=== PATIENT | male | born 1935 | race Caucasian/White ===

== ENCOUNTER 2017-01-11 05:23 | Inpatient (IN) | payer MEDICARE ==
[2017-01-11 05:54] LABS: #Lymphocytes 1.8 thou/uL (1.20-3.40); #Monocytes 0.6 thou/uL (0.11-0.59); #Neutrophils 14.8 thou/uL (1.40-6.50); %Basophils 0.1 % (0.0-1.0); %Eosinophils 0.2 % (0.0-10.0); %Lymphocytes 10.2 % (21.0-51.0); %Monocytes 3.5 % (0.0-10.0); Hematocrit 25.4 % (42.0-52.0); Mean Platelet Volume 6.3 fL (7.4-10.4); Red Blood Cell (RBC) Count 2.76 mill/uL (4.70-6.10); White Blood Cell (WBC) Count 17.2 thou/uL (4.8-10.8)
[2017-01-11 06:19] LABS: ALT (SGPT) 13 U/L (8-55); AST (SGOT) 15 U/L (5-34); Alkaline Phosphatase 51 U/L (40-150); Anion Gap 17 mmol/L (10-20); BUN (Urea Nitrogen) 93 mg/dL (8.4-25.7); Bilirubin, Total 0.4 mg/dL (0.2-1.2); Calc. Creatinine Clearance 0 mL/min (70-130); Carbon Dioxide 21 mmol/L (23-31); Chloride 102 mmol/L (98-107); Estimated GFR-MDRD 49; Globulin 2.7 g/dL (2.4-3.5); Protein, Total 6.5 g/dL (5.8-8.1)
[2017-01-11 06:23] LABS: Troponin I Less than 0.010 ng/mL (< 0.028)
[2017-01-11 06:38] LABS: Lactic Acid - Sepsis 3.6 mmol/L (0.5-2.2)
[2017-01-11] MEDS ORDERED: Sodium Chloride 0.9% 100 ML ONE (06:44)
[2017-01-11] MEDS ORDERED: cefTRIAXone\\ROCEPHIN 1 GM VIAL ONE (06:44)
--- NOTE | 2017-01-11 07:50 | RAD ---
SINGLE VIEW OF CHEST: Date: 01/11/17 COMPARISON: 06/12/16. HISTORY: Chest pain starting yesterday. FINDINGS: Single view of the chest shows normal sized cardiomediastinal silhouette with atherosclerotic calcif ications in the aorta. There is no evidence of consolidation, mass, or pleural effusion. The patient is status post right shoulder arthroplasty. IMPRESSION: 1. No evidence of acute cardiopulmonary disease. 2. Atherosclerotic disease. POS: [facility]
[2017-01-11] MEDS ORDERED: Azithromycin 500 MG VIAL ONE (08:05)
--- NOTE | 2017-01-11 08:24 | HP ---
PRIMARY CARE PHYSICIAN: Rajani Lucas, Family Nurse Practitioner. REASON FOR ADMISSION: Chest pain and leukocytosis, rule out sepsis. HISTORY OF PRESENT ILLNESS: An 81-year-old male who has Alzheimer's dementia, diabetes type 2, hypertension, hypothyroidism who was complaining of chest pain for the last couple of days. His chest pain description is very difficult to get from him because he was changing position of location of the pain. Yesterday when he was complaining of pain and that is why patient's daughter-in- law told him that they cannot go to [employer] game for her granddaughter and then the patient reported to them that he was fine. He does not have any chest pain. Subsequently, they went to [employer] game and as per patient's daughter- in-law, he was able to watch entire game without any complaints. He was able to walk, he was able to climb stairs over there and after the volleyball game they went to a restaurant and ate lunch. Subsequently they went home and again at home the patient was complaining of chest pain which was predominantly in the epigastric region and sometimes in the left side, sometimes right side and that is why the patient's kbtztoso-bi-ovu decided to bring him to the emergency room for evaluation. About a couple of weeks ago he had urinary tract infection and per patient's [id number]-[id number], the patient was given antibiotic prescription for amoxicillin for 4 days. The patient was also having cough productive of white sputum and the patient's primary care physician prescribed Tessalon. He did not have any fever or chills. He did not have any nausea, vomiting, diarrhea, or UTI symptoms. He did not have any fever at home. He denies any difficulty breathing, hemoptysis, lower extremity swelling. The patient had only poor appetite for the last couple of days. PAST MEDICAL HISTORY: Diabetes type 2, hypertension, hypothyroidism, Alzheimer dementia. History of stroke in the past and he is blind in his left eye. PAST PSYCHIATRIC HISTORY: Anxiety and depression. PAST SURGICAL HISTORY: Right shoulder surgery with shoulder replacement. SOCIAL HISTORY: Patient lives at home with the family. Patient does not have any tobacco, alcohol or illicit drug abuse. The patient's bqexusvm-sy-bue is the surrogate decision maker. The patient is and lives with his son and pevrobeh-wc-ljn. FAMILY HISTORY: No strong family history of premature coronary artery disease, stroke or cancer. ALLERGIES: IODINE CONTRAST. CURRENT HOME MEDICATIONS: Metformin 1000 mg p.o. b.i.d., Namenda 5 mg p.o. b.i.d., Aricept 10 mg p.o. at bedtime, aspirin 81 mg p.o. daily. Buspirone 10 mg p.o. daily, Synthroid 112 mcg p.o. daily, B complex 1 tablet p.o. daily, lisinopril 10 mg p.o. daily, Mobic 15 mg half tablet at bedtime, ferrous sulfate 325 mg p.o. daily, Zoloft 100 mg p.o. daily, Xanax 0.25 mg p.o. at bedtime., Tessalon 200 mg t.i.d. as needed. REVIEW OF SYSTEMS: The following complete review of systems was negative, unless otherwise mentioned in the HPI or below: Constitutional: Weight loss or gain, ability to conduct usual activities. Skin: Rash, itching. Eyes: Double vision, pain. ENT/Mouth: Nose bleeding, neck stiffness, pain, tenderness. Cardiovascular: Palpitations, dyspnea on exertion, orthopnea. Respiratory: Shortness of breath, wheezing, cough, hemoptysis, fever or night sweats. Gastrointestinal: Poor appetite, abdominal pain, heartburn, nausea, vomiting, constipation, or diarrhea. Genitourinary: Urgency, frequency, dysuria, nocturia. Musculoskeletal: Pain, swelling. Neurologic/Psychiatric: Anxiety, depression. Allergy/Immunologic: Skin rash, bleeding tendency. Please see my HPI, pertinent positives and negatives. All other review of systems reviewed and negative except as mentioned in the HPI. Review of systems is a little bit unreliable because of his dementia. PHYSICAL EXAMINATION: VITAL SIGNS: On arrival, blood pressure 115/62, pulse 93, respiratory rate 16, temperature 97.8, saturation 98% on room air, weight 83.01 kilograms. GENERAL: The patient is currently alert, awake, baseline confused. HEENT: Head; normocephalic, atraumatic. Eyes: Pupils round, reactive to light. Extraocular muscles intact. ENT: Oropharynx within normal limits. Moist mucous membranes. No oral lesions. No pharyngeal erythema, no exudate. NECK: Supple. Range of motion is normal. No meningeal signs of irritation. LUNGS: Coarse breath sounds noted, but no obvious rales or rhonchi. No expiratory wheezing, no accessory muscles of respiration use. CARDIAC: S1, S2 regular, slight tachycardia, no murmur, no gallop, no rub. ABDOMEN: Soft. No epigastric tenderness, no Simmons sign, no peritoneal signs, no distention. Bowel sounds present. No suprapubic discomfort noted. BACK: No CVA tenderness. EXTREMITIES: Upper extremities; passive movement of all joints are normal. Lower extremities: No edema. Good peripheral pulsation. SKIN: No skin rash. HEMATOLOGICAL: No lymphadenopathy. PSYCHIATRIC: Normal affect. NEUROLOGIC: Nonfocal examination. Patient is moving all 4 limbs. SIGNIFICANT LABS: EKG based on my review reveals normal sinus rhythm, right bundle branch block pattern. Chest x-ray based on my review, no acute cardiopulmonary process. CBC: WBC 17.2, hemoglobin 8.3, platelet 276. BMP: Sodium 135, potassium 4.8, chloride 102, carbon dioxide 21, anion gap 17, BUN 93, creatinine 1.38, glucose 209, calcium 10.0. LFT: AST 15, ALT 13, alkaline phosphatase 51, albumin 3.8. CK-MB 3.4, troponin I less than 0.010, BNP 25.6. Lactic acid 3.6, D-dimer 1.25. EMERGENCY ROOM COURSE: The patient is given Rocephin 1 gram and azithromycin 500 mg, aspirin 324 mg and IV fluids 500 mL. ASSESSMENT AND PLAN: 1. Chest pain. The patient's chest pain description is very vague. He is pointing different locations at different times, location of the pain is in the epigastric left, right side. He is on room air. He has elevated D-dimer, though probability of pulmonary embolism is extremely unlikely, but will do VQ scan given his contrast allergy. As he has D-dimer elevated, we will also do ultrasound of bilateral lower extremities to rule out any DVT. I am suspecting his chest pain is related with his bronchitis and given his cough for almost 2 weeks and he has leukocytosis. We will continue with Rocephin 1 gram q.24 hours and azithromycin 500 mg IV daily while in hospital. We will control his pain and will do serial cardiac enzymes to rule out acute coronary syndrome. While in the hospital we will monitor on telemetry floor. 2. Acute kidney failure. The patient will be given IV fluid normal saline at 100 mL per hour and we will repeat BMP tomorrow. We will hold on that lisinopril therapy as well as NSAIDs and avoid nephrotoxins. 3. Leukocytosis, rule out sepsis, most likely related with acute bronchitis, but we will check urinalysis, urine culture. Blood culture already obtained. The patient is already on broad spectrum antibiotic therapy. We will repeat CBC tomorrow. 4. Lactic acidosis, could be part of sepsis, could be part of metformin. We will repeat lactic acid after IV fluid hydration. 5. Diabetes type 2. Given acute kidney failure, we will hold on metformin therapy. We will only continue with insulin as per sliding scale per protocol. We will restart metformin tomorrow. 6. Alzheimer dementia. While in hospital, we will continue his home medications, Namenda 5 mg b.i.d., Aricept 10 mg p.o. at bedtime. 7. Anxiety and depression. We will continue Xanax 0.25 mg at bedtime and Zoloft 100 mg p.o. daily. 8. Hypothyroidism. We will continue Synthroid 112 mcg p.o. daily. 9. Chronic normocytic anemia. We will continue ferrous sulfate 325 mg p.o. daily and multivitamin 1 tablet daily while in hospital. 10. Deep venous thrombosis prophylaxis, heparin 5000 units subcu twice daily. 11. Gastrointestinal prophylaxis, Protonix 40 mg p.o. daily. CODE STATUS: I spoke with the patient's [id number] who is medical power of banking attorney and confirmed DNR status. Disposition plan based on clinical course. We are trying to rule out sepsis. We are going to treat for acute bronchitis and we will hydrate with IV fluids for acute kidney failure. Most likely the patient will stay more than 2 midnights. MTDD
[2017-01-11 09:10] LABS: Troponin I Less than 0.010 ng/mL (< 0.028)
[2017-01-11] MEDS ORDERED: Diabetic Tussin 200 MG/10 ML UDCUP PO PRN (09:26)
[2017-01-11] MEDS ORDERED: Benzonatate 100 MG CAP PO PRN (09:26)
[2017-01-11] MEDS ORDERED: Saccharomyces boulardii 250 MG CAP PO SCH ×2 (09:26→10:00)
[2017-01-11] MEDS ORDERED: Eucerin (Mineral Oil/Petrolatum,White) 30 gm Jar TOP PRN (09:26)
[2017-01-11] MEDS ORDERED: busPIRone HCl 10 MG TAB PO SCH ×2 (09:26→09:45)
[2017-01-11] MEDS ORDERED: Ondansetron ODT 4 MG TAB PO PRN (09:26)
[2017-01-11] MEDS ORDERED: Senokot 8.6 MG TAB PO PRN (09:26)
[2017-01-11] MEDS ORDERED: HYDROcodone/Acetaminophen 5/325 mg Tablet PO PRN (09:26)
[2017-01-11] MEDS ORDERED: Zolpidem Tartrate 5 MG TAB PO PRN (09:26)
[2017-01-11] MEDS ORDERED: Dextrose 5% in Water 1,000 ML IV PRN (09:26)
[2017-01-11] MEDS ORDERED: Artificial Tears 18 DROP/0.9 ML EA EYE PRN (09:26)
[2017-01-11] MEDS ORDERED: Ferrous Sulfate 325 MG TAB PO SCH ×2 (09:26→09:45)
[2017-01-11] MEDS ORDERED: Heparin 5,000 UNITS/ML VIAL SC SCH ×2 (09:26→09:45)
[2017-01-11] MEDS ORDERED: Loratadine 10 MG TAB PO PRN (09:26)
[2017-01-11] MEDS ORDERED: Ondansetron HCl/PF 4 MG/2 ML Vial IVP PRN (09:26)
[2017-01-11] MEDS ORDERED: Loperamide HCl 2 MG CAP PO PRN (09:26)
[2017-01-11] MEDS ORDERED: Mag-Al 1200 mg/1200 mg/30 ML UDCUP PO PRN (09:26)
[2017-01-11] MEDS ORDERED: Dextrose 50% Abboject 50 ML SYRINGE SLOW IVP PRN (09:26)
[2017-01-11] MEDS ORDERED: hydrALAZINE 20 MG/ML VIAL SLOW IVP PRN (09:26)
[2017-01-11] MEDS ORDERED: Multivitamin W/ Minerals 1 TAB PO SCH ×2 (09:26→09:45)
[2017-01-11] MEDS ORDERED: Sodium Chloride 0.65% Nasal 44 ML BOT EA NARE PRN (09:26)
[2017-01-11] MEDS ORDERED: HumaLOG 300 UNITS/3 ML VIAL SC PRN ×2 (09:26)
[2017-01-11] MEDS ORDERED: Milk Of Magnesia 30 ML UDCUP PO PRN (09:26)
[2017-01-11] MEDS: Sodium Chloride 0.9% 1,000 ML IV SCH ×2 (10:24→21:56)
[2017-01-11] MEDS: Azithromycin 500 MG in Sodium Chloride 0.9% 250 ML 250 ML IVPB SCH (11:15)
[2017-01-11] MEDS: cefTRIAXone\\ROCEPHIN 1 GM in Sodium Chloride 0.9% 100 ML IVPB SCH (11:15)
[2017-01-11 12:41] LABS: Troponin I 0.019 ng/mL (< 0.028)
[2017-01-11 13:46] LABS: Bilirubin Negative (Negative); Blood, Urine Negative (Negative); Glucose, Urine (Dipstick) Negative (Negative); Ketone, Urine Negative (Negative); Nitrite Negative (Negative); Protein, Urine (Dipstick) Negative (Neg-Trace); Urobilinogen 0.2 mg/dL (0.2-1.0)
[2017-01-11 13:51] LABS: Bacteria/HPF None Seen HPF (None Seen); Hyaline Casts/LPF 0-3 HYALINE CAST LPF (0-3 Hyaline); RBC/HPF 0-3 HPF (0-3); Squamous Epithelial 0-3 HPF (0-3); WBC/HPF None Seen HPF (0-3)
--- NOTE | 2017-01-11 14:25 | NM ---
NUCLEAR MEDICINE VQ SCAN: Date: 01/11/17 COMPARISON: Chest x-ray dated 01/11/17. HISTORY: Chest pain and elevated D-Dimer. TECHNIQUE: A VQ scan was performed in the standard fashion. Ventilation images were performed using 16.4 mCi Xe non-133. Perfusion images were performed using 6.1 mCi of technetium-99m MAA. FINDINGS: Ventilation: Breath-hold, equilibrium, and washout phases are normal. No ventilator defects are seen. Mild air tr apping is seen. Perfusion: No small, medium, or large perfusion defects are seen. IMPRESSION: 1. Very low probability for pulmonary thromboembolism. 2. Air trapping may be secondary to emphysema. POS: [facility]
--- NOTE | 2017-01-11 16:38 | ULT ---
BILATERAL LOWER EXTREMITY VENOUS ULTRASOUND: Date: 01/11/17 COMPARISON: None. HISTORY: Elevated D-Dimer and bilateral lower extremity edema. TECHNIQUE: Multiplanar Lambert scale and color Doppler images were obtained in a bilateral lower extremity venous ultrasound. Spectral analysis of the Doppler waveforms were performed. FINDINGS: Bilateral common femoral veins, profunda femoral veins, superficial femoral veins, and popliteal vei ns are normal in appearance without visible thrombus. These vessels demonstrate normal compression, flow, and augmentation. The posterior tibial veins and greater saphenous veins are also patent. IMPRESSION: No evidence of deep venous thrombosis. POS: [facility]
[2017-01-11] MEDS ORDERED: Ziprasidone 20 MG VIAL IM SCH (17:30)
[2017-01-11] MEDS ORDERED: Sterile Water 10 ML VIAL FS SCH (17:30)
[2017-01-11] MEDS: ALPRAZolam 0.25 MG TAB PO PRN (21:53)
[2017-01-11] MEDS: Donepezil HCl 10 MG TAB PO SCH (21:54)
[2017-01-11] MEDS: Heparin 5,000 UNITS/ML VIAL SC SCH (22:07)
[2017-01-12] MEDS: Sodium Chloride 0.9% 1,000 ML IV SCH ×2 (05:51→16:34)
[2017-01-12 06:35] LABS: #Eosinphils 0.1 thou/uL (0.0-0.7); #Lymphocytes 1.7 thou/uL (1.20-3.40); #Monocytes 0.5 thou/uL (0.11-0.59); #Neutrophils 4.1 thou/uL (1.40-6.50); %Basophils 0.3 % (0.0-1.0); %Lymphocytes 26.6 % (21.0-51.0); Hematocrit 16.9 % (42.0-52.0); Mean Platelet Volume 6.1 fL (7.4-10.4); Red Blood Cell (RBC) Count 1.83 mill/uL (4.70-6.10); White Blood Cell (WBC) Count 6.3 thou/uL (4.8-10.8)
[2017-01-12 06:40] LABS: ALT (SGPT) 8 U/L (8-55); AST (SGOT) 11 U/L (5-34); Alkaline Phosphatase 38 U/L (40-150); Anion Gap 9 mmol/L (10-20); BUN (Urea Nitrogen) 54 mg/dL (8.4-25.7); Bilirubin, Total 0.2 mg/dL (0.2-1.2); Calc. Creatinine Clearance 84 mL/min (70-130); Calcium 8.3 mg/dL (7.8-10.44); Carbon Dioxide 24 mmol/L (23-31); Chloride 108 mmol/L (98-107); Estimated GFR-MDRD Greater than 90; Protein, Total 5.1 g/dL (5.8-8.1)
[2017-01-12 07:38] LABS: #Monocytes 0.6 thou/uL (0.11-0.59); %Basophils 0.1 % (0.0-1.0); %Eosinophils 0.7 % (0.0-10.0); %Lymphocytes 30.2 % (21.0-51.0); %Monocytes 8.4 % (0.0-10.0); Hematocrit 16.8 % (42.0-52.0); Mean Platelet Volume 6.1 fL (7.4-10.4); Red Blood Cell (RBC) Count 1.82 mill/uL (4.70-6.10); White Blood Cell (WBC) Count 6.6 thou/uL (4.8-10.8)
[2017-01-12] MEDS: Heparin 5,000 UNITS/ML VIAL SC SCH ×2 (09:08→20:53)
--- NOTE | 2017-01-12 09:41 | PDOC.PN ---
- Subjective Encounter Start Date: 01/12/17 Encounter Start Time: 09:38 Subjective: Incoherent speech -: No evidence of bleeding -: No fevers this AM - Objective Resuscitation Status: Resuscitation Status DNR:Do Not Resuscitate MAR Reviewed: Yes Vital Signs & Weight: Vital Signs (12 hours) Temp Pulse Resp BP Pulse Ox 01/12/17 08:00 97.2 F L 104 H 22 H 137/64 96 01/12/17 04:00 90 20 127/57 L Weight Weight 175 lb 12.8 oz I&O: 01/11/17 01/12/17 01/13/17 06:59 06:59 06:59 Intake Total 2809 Output Total 1335 Balance 1474 Result Diagrams: 01/12/17 07:03 01/12/17 05:42 Additional Labs: Accuchecks 01/12/17 01/11/17 01/11/17 05:59 20:38 16:31 POC Glucose 155 H 151 H 159 H 01/11/17 13:24 POC Glucose 189 H Phys Exam - Physical Examination Constitutional: NAD HEENT: moist MMs, sclera anicteric Neck: no nodes, no JVD Respiratory: no wheezing, no rales, clear to auscultation bilateral Cardiovascular: RRR, no significant murmur Gastrointestinal: soft, non-tender, no distention, positive bowel sounds Musculoskeletal: pulses present Deviation from normal: unable to assess Skin: no rash, normal turgor Dx/Plan (1) Chest pain Code(s): R07.9 - CHEST PAIN, UNSPECIFIED Status: Acute (2) Anemia Code(s): D64.9 - ANEMIA, UNSPECIFIED Status: Acute (3) Dementia Code(s): F03.90 - UNSPECIFIED DEMENTIA WITHOUT BEHAVIORAL DISTURBANCE Status: Chronic - Plan Atypical Chest pain * serial cardiac enzymes x3: negative for ACS * Elevated D dimer - DVT/PE unlikely given VQ and Venogram results * CXR: no infiltrates * check CT a/p * check urine cx * check blood cxs * check labs in AM Acute Anemia * type and screen * transfuse 3 units PRBCs * check FOB * check CT a/p without contrast to look for intra-abdominal hemorrhage * monitor serial Hb Dispo: continue inpt.
[2017-01-12] MEDS: busPIRone HCl 10 MG TAB PO SCH (09:49)
[2017-01-12] MEDS: Multivitamin W/ Minerals 1 TAB PO SCH (09:49)
[2017-01-12] MEDS: Levothyroxine Sodium 112 MCG TAB PO SCH (09:49)
[2017-01-12] MEDS: Ferrous Sulfate 325 MG TAB PO SCH (09:49)
[2017-01-12] MEDS: Saccharomyces boulardii 250 MG CAP PO SCH (09:49)
[2017-01-12] MEDS: Azithromycin 500 MG in Sodium Chloride 0.9% 250 ML 250 ML IVPB SCH (09:50)
--- NOTE | 2017-01-12 11:07 | CT ---
CT OF THE ABDOMEN AND PELVIS WITHOUT CONTRAST: Date: 01/12/17 COMPARISON: None. HISTORY: Anemia and abdominal pain. TECHNIQUE: Multiple contiguous axial images were obtained in a CT of the abdomen and pelvis without contrast. C oronal reformats were performed. FINDINGS: The liver, gallbladder, kidneys, adrenal glands, spleen, and pancreas are unremarkable, although keith luation is limited without IV contrast. No free air, free fluid, or stranding changes are seen in th e abdomen or pelvis. Scattered diverticula are seen in the colon. The small bowel is unremarkable. The appendix is not de finitely seen. Atherosclerotic calcifications are seen in the aorta. There appears to be an area of focal dissectio n in the distal aorta with calcified septum. This is likely chronic. There is ectasia at the area of dissection in the infrarenal aorta with the aorta measuring 2.7 cm in greatest dimension. No abdomi nal or pelvic lymphadenopathy seen. Brachytherapy seeds are seen within the prostate. Degenerative changes are seen in the spine. The visualized inferior thorax and abdominal wall soft t issues are unremarkable. IMPRESSION: 1. No evidence of acute intra-abdominal/pelvic abnormality. 2. 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 3. Diverticulosis. POS: [facility]
[2017-01-12] MEDS: Acetaminophen 325 MG TAB PO PRN (11:51)
[2017-01-12] MEDS: cefTRIAXone\\ROCEPHIN 1 GM in Sodium Chloride 0.9% 100 ML IVPB SCH (11:52)
[2017-01-12] MEDS: Donepezil HCl 10 MG TAB PO SCH (20:54)
[2017-01-13] MEDS: Sodium Chloride 0.9% 1,000 ML IV SCH ×3 (03:23→22:34)
[2017-01-13] MEDS: Levothyroxine Sodium 112 MCG TAB PO SCH (05:41)
[2017-01-13 06:03] LABS: #Eosinphils 0.1 thou/uL (0.0-0.7); #Monocytes 0.6 thou/uL (0.11-0.59); #Neutrophils 3.7 thou/uL (1.40-6.50); %Basophils 0.4 % (0.0-1.0); %Eosinophils 1.2 % (0.0-10.0); %Lymphocytes 31.7 % (21.0-51.0); %Monocytes 9.5 % (0.0-10.0); Hematocrit 24.3 % (42.0-52.0); Mean Platelet Volume 6.3 fL (7.4-10.4); Red Blood Cell (RBC) Count 2.72 mill/uL (4.70-6.10); White Blood Cell (WBC) Count 6.4 thou/uL (4.8-10.8)
[2017-01-13 06:24] LABS: Anion Gap 10 mmol/L (10-20); BUN (Urea Nitrogen) 31 mg/dL (8.4-25.7); Calc. Creatinine Clearance 93 mL/min (70-130); Calcium 7.8 mg/dL (7.8-10.44); Carbon Dioxide 22 mmol/L (23-31); Chloride 109 mmol/L (98-107); Estimated GFR-MDRD Greater than 90; Magnesium 1.7 mg/dL (1.6-2.6)
--- NOTE | 2017-01-13 08:37 | PDOC.PN ---
- Subjective Encounter Start Date: 01/13/17 Encounter Start Time: 08:35 Subjective: still confused -: No f/c -: no cp/sob/MENDEZ - Objective Resuscitation Status: Resuscitation Status DNR:Do Not Resuscitate MAR Reviewed: Yes Vital Signs & Weight: Vital Signs (12 hours) Temp Pulse Resp BP Pulse Ox 01/13/17 07:40 96.6 F L 87 18 123/58 L 98 01/13/17 04:00 98.4 F 88 22 H 130/63 95 01/13/17 00:00 98.5 F 91 20 112/63 97 Weight Weight 175 lb 12.8 oz I&O: 01/12/17 01/13/17 01/14/17 06:59 06:59 06:59 Intake Total 2809 5405 Output Total 1335 1340 Balance 1474 4065 Result Diagrams: 01/13/17 05:24 01/13/17 05:24 Additional Labs: Accuchecks 01/12/17 01/12/17 01/12/17 20:09 16:55 11:41 POC Glucose 132 H 122 H 153 H Phys Exam - Physical Examination Constitutional: NAD HEENT: PERRLA, moist MMs Neck: no nodes, no JVD Respiratory: no wheezing, no rales, no rhonchi, clear to auscultation bilateral Cardiovascular: RRR, no significant murmur Gastrointestinal: soft, non-tender, positive bowel sounds Neurological: moves all 4 limbs Deviation from normal: unable to assess Skin: no rash, normal turgor Dx/Plan (1) Chest pain Code(s): R07.9 - CHEST PAIN, UNSPECIFIED Status: Acute (2) Anemia Code(s): D64.9 - ANEMIA, UNSPECIFIED Status: Acute (3) Dementia Code(s): F03.90 - UNSPECIFIED DEMENTIA WITHOUT BEHAVIORAL DISTURBANCE Status: Chronic - Plan Atypical Chest pain * serial cardiac enzymes x3: negative for ACS * Elevated D dimer - DVT/PE unlikely given VQ and Venogram results * CXR: no infiltrates * CT a/p: no acute issues * urine cx: NGTD * blood cxs: NGTD * check labs in AM Acute Anemia * type and screen * transfused 3 units PRBCs on 01-12-17 with appropriate rise in Hb * FOB: pending * CT a/p: no intra-abdominal hemorrhage * monitor serial Hb Dispo: continue inpt.
[2017-01-13] MEDS: Heparin 5,000 UNITS/ML VIAL SC SCH (09:28)
[2017-01-13] MEDS: Azithromycin 500 MG in Sodium Chloride 0.9% 250 ML 250 ML IVPB SCH (09:28)
[2017-01-13] MEDS: busPIRone HCl 10 MG TAB PO SCH (09:29)
[2017-01-13] MEDS: Multivitamin W/ Minerals 1 TAB PO SCH (09:29)
[2017-01-13] MEDS: Ferrous Sulfate 325 MG TAB PO SCH (09:29)
[2017-01-13] MEDS: Saccharomyces boulardii 250 MG CAP PO SCH (09:29)
[2017-01-13] MEDS: Acetaminophen 325 MG TAB PO PRN (09:29)
[2017-01-13] MEDS: ALPRAZolam 0.25 MG TAB PO PRN (09:30)
[2017-01-13] MEDS: cefTRIAXone\\ROCEPHIN 1 GM in Sodium Chloride 0.9% 100 ML IVPB SCH (12:27)
--- NOTE | 2017-01-13 14:24 | PQF ---
CLINICAL DOCUMENTATION IMPROVEMENT CLARIFICATION FORM: ICD-10 Updated PLEASE DO AN ADDENDUM TO THE PROGRESS NOTE WITH ANY DOCUMENTATION UPDATES OR ADDITIONS AND CARRY THROUGH TO DC SUMMARY. THANK YOU. DATE: 01/13 ATTN: DR. RUKHSANA ERWIN Please exercise your independent, professional judgment in responding to the clarification form. Clinical indicators are provided on the bottom of this form for your review Please check appropriate box(s) to clarify if the following diagnosis has been ruled in our ruled out: DIAGNOSIS: SEPSIS [ ] Ruled in diagnosis [ ] Continue to treat [ ] Resolved [ ] Ruled out diagnosis [ ] Cannot rule out diagnosis [ ] Other diagnosis [x ] Unable to determine For continuity of documentation, please document condition throughout progress notes and discharge summary. Thank You. CLINICAL INDICATORS - SIGNS / SYMPTOMS / LABS ATTENDING PHYSICIAN H&P DOCUMENTATION 01/11: HISTORY OF PRESENT ILLNESS: ABOUT A COUPLE OF WEEKS AGO HE HAD UTI INFECTION AND WAS GIVEN AMOXICILLIN FOR 4 DAYS. ASSESSMENT & PLAN: 2. ACUTE KIDNEY FAILURE 3. LEUKOCYTOSIS, R/O SEPSIS, MOST LIKELY RELATED WITH ACUTE BRONCHITIS 4. LACTIC ACIDOSIS, COULD BE PART OF SEPSIS, COULD BE PART OF METFORMIN LABS: WBC 17.2 LACTIC ACID: 3.6 HR: 93-104 RISK FACTORS: RECENT UTI PRODUCTIVE COUGH OF WHITE SPUTUM ALZHEIMER'S DEMENTIA ADVANCED AGE TREATMENTS: IV ANTIBIOTICS (ROCEPHIN & AZITHROMYCIN 01/11 TO PRESENT) IVF (NS 01/11 - PRESENT) THANK YOU! Radha (This form is maintained as a part of the permanent medical record) 2014 [employer]. All Rights Reserved Radha Martino RN, BSN [email or web address] Office: [phone] [id number]
--- NOTE | 2017-01-13 17:10 | RAD ---
TWO VIEW LEFT ELBOW: 01/13/17 INDICATION: Left elbow pain. FINDINGS: Moderate osteoarthritis of the left elbow is present. No fracture or joint capsular distention. Soft tissue prominence is seen notably at the posterior aspect. There is a linear, small density project ing adjacent the olecranon process. This could relate to a small enthesophyte. IMPRESSION: 1. Moderate osteoarthritis. 2. Prominent soft tissues overlying the posterior aspect of the elbow which can be seen in the setting of olecranon bursitis. Correlate clinically. POS: [facility]
[2017-01-13] MEDS ORDERED: Pantoprazole 40 MG VIAL IVP SCH (19:15)
[2017-01-13] MEDS ORDERED: Pantoprazole 80 MG in Sodium Chloride 0.9% 100 ML IVP SCH (19:15)
[2017-01-13] MEDS: Donepezil HCl 10 MG TAB PO SCH (20:42)
--- NOTE | 2017-01-14 02:02 | CON ---
DATE OF CONSULTATION: 01/13/2017 GI CONSULTATION NOTE CHIEF COMPLAINT: Abdominal pain. HISTORY OF PRESENT ILLNESS: Mr. Muse is an 81-year-old man with Alzheimer's dementia, who repo rts epigastric aching pain for the last couple of days. Today, he has had pain with swallowing his food. He has had no nausea or vomiting, but is unable to eaten his entire meal due to the pain. He also reports black stools for the last couple of days. No shortness of breath. No vomiting. He w as found to have severe anemia on presentation, which is an acute change from last month. PAST MEDICAL HISTORY: Diabetes mellitus type 2, hypertension, hypothyroidism, stroke, Alzheimer's d ementia. PAST SURGICAL HISTORY: Shoulder surgery. FAMILY HISTORY: Negative for GI malignancy. SOCIAL HISTORY: No alcohol, tobacco or drugs. ALLERGIES: IODINE CONTRAST. MEDICATIONS: Prior to admission, metformin, Namenda, Aricept, aspirin, buspirone, Synthroid, lisino pril, Mobic, ferrous sulfate, Zoloft, Xanax. REVIEW OF SYSTEMS: Negative x10 systems reviewed except as stated in the history of present illness . PHYSICAL EXAMINATION: VITAL SIGNS: Temperature 97.4, pulse 83, blood pressure 121/64. GENERAL: He is in no acute distress. He is awake and alert. HEENT: Eyes have no scleral icterus. Oropharynx is clear, without lesions. NECK: No cervical or supraclavicular lymphadenopathy. LUNGS: Clear to auscultation bilaterally. HEART: Regular rate and rhythm. ABDOMEN: Soft, mild tenderness in the epigastric region without guarding. Bowel sounds are present . EXTREMITIES: No lower extremity edema. RECTAL EXAM: Revealed black stool in the rectal vault. LABORATORY DATA: Hemoglobin is 8.2 this morning. Hemoglobin was 5.6 yesterday morning. Hemoglobin was 14 on 12/24/2016. He did receive 3 units transfusion yesterday. Creatinine is 0.7. IMPRESSION: 1. Anemia of acute blood loss. 2. Gastrointestinal bleed with melenic stool in the rectal vault by digital exam. 3. Aspirin and Mobic use. RECOMMENDATIONS: 1. He has received 3 units transfusion so far. 2. Proton pump inhibitor IV. 3. EGD tomorrow.
[2017-01-14] MEDS: Levothyroxine Sodium 112 MCG TAB PO SCH (05:44)
[2017-01-14 06:27] LABS: #Eosinphils 0.2 thou/uL (0.0-0.7); #Lymphocytes 2.4 thou/uL (1.20-3.40); #Monocytes 0.7 thou/uL (0.11-0.59); #Neutrophils 4.4 thou/uL (1.40-6.50); %Basophils 0.4 % (0.0-1.0); %Eosinophils 2.1 % (0.0-10.0); %Lymphocytes 31.6 % (21.0-51.0); %Monocytes 9.3 % (0.0-10.0); Hematocrit 21.8 % (42.0-52.0); Mean Platelet Volume 6.4 fL (7.4-10.4); Red Blood Cell (RBC) Count 2.41 mill/uL (4.70-6.10); White Blood Cell (WBC) Count 7.7 thou/uL (4.8-10.8)
[2017-01-14 06:44] LABS: Anion Gap 10 mmol/L (10-20); BUN (Urea Nitrogen) 36 mg/dL (8.4-25.7); Calc. Creatinine Clearance 102 mL/min (70-130); Carbon Dioxide 21 mmol/L (23-31); Chloride 107 mmol/L (98-107); Estimated GFR-MDRD Greater than 90; Magnesium 1.7 mg/dL (1.6-2.6)
--- NOTE | 2017-01-14 08:25 | PDOC.PN ---
- Subjective Encounter Start Date: 01/14/17 Encounter Start Time: 08:24 Subjective: Awake/alert, but confused -: melena - Objective Resuscitation Status: Resuscitation Status DNR:Do Not Resuscitate MAR Reviewed: Yes Vital Signs & Weight: Vital Signs (12 hours) Temp Pulse Resp BP Pulse Ox 01/14/17 07:45 98.2 F 100 18 137/66 98 01/14/17 05:45 98.9 F 99 138/64 98 01/14/17 01:00 97.5 F L 86 130/59 L 97 Weight Admit Weight 177 lb 9.6 oz Weight 186 lb 4.8 oz I&O: 01/13/17 01/14/17 01/15/17 06:59 06:59 06:59 Intake Total 6910 1880 Output Total 2340 Balance 4570 1880 Result Diagrams: 01/14/17 05:56 01/14/17 05:56 Additional Labs: Accuchecks 01/14/17 01/13/17 01/13/17 05:50 19:45 17:22 POC Glucose 129 H 153 H 122 H 01/13/17 01/13/17 11:56 05:40 POC Glucose 148 H 131 H Phys Exam - Physical Examination Constitutional: NAD HEENT: PERRLA, moist MMs Neck: no nodes, no JVD Respiratory: no wheezing, no rales Cardiovascular: RRR, no significant murmur Gastrointestinal: soft, non-tender, positive bowel sounds left elbow pain Neurological: moves all 4 limbs Skin: no rash, normal turgor Dx/Plan (1) Chest pain Code(s): R07.9 - CHEST PAIN, UNSPECIFIED Status: Acute (2) Anemia Code(s): D64.9 - ANEMIA, UNSPECIFIED Status: Acute (3) Dementia Code(s): F03.90 - UNSPECIFIED DEMENTIA WITHOUT BEHAVIORAL DISTURBANCE Status: Chronic - Plan Atypical Chest pain * serial cardiac enzymes x3: negative for ACS * Elevated D dimer - DVT/PE unlikely given VQ and Venogram results * CXR: no infiltrates * CT a/p: no acute issues * urine cx: 10-25k growth of mixed skin keshia * blood cxs: NGTD * check labs in AM Acute Anemia * type and screen * transfused 3 units PRBCs on 01-12-17 * FOB: Positive * consulted GI - EGD scheduled for today * PPI * CT a/p: no intra-abdominal hemorrhage * monitor serial H/H Left Elbow pain * XR: moderate OA with possible Olecranon Bursitis * prn analgesics * consult ortho Dispo: continue inpt.
[2017-01-14] MEDS: Saccharomyces boulardii 250 MG CAP PO SCH (09:27)
[2017-01-14] MEDS: Sodium Chloride 0.9% 1,000 ML IV SCH ×2 (09:27→21:16)
[2017-01-14] MEDS: Multivitamin W/ Minerals 1 TAB PO SCH (09:28)
[2017-01-14] MEDS: Azithromycin 500 MG in Sodium Chloride 0.9% 250 ML 250 ML IVPB SCH (09:28)
[2017-01-14] MEDS: busPIRone HCl 10 MG TAB PO SCH (09:28)
--- NOTE | 2017-01-14 10:00 | CON ---
DATE OF CONSULTATION: 01/14/2017 REQUESTING PHYSICIAN: Sarthak Brenner M.D. CONSULTING PHYSICIAN: Saad Baker M.D. REASON FOR CONSULTATION: Left elbow olecranon bursitis. BRIEF CLINICAL HISTORY: Jomar is an 81-year-old white male who was admitted to the medicine [facility] 3 days ago for atypical chest pain. Our service was consulted for evaluation of what appeared to be an olecranon bursitis. He has very little in the way of complaints about this elbow when it mata s not hurt him, but it was noted on physical examination therefore, our service was consulted for or thopedic evaluation. PHYSICAL EXAMINATION: EXTREMITIES: Visual inspection of left elbow demonstrates him to have a fluctuant nodule at the ape x of the elbow directly over the olecranon bursa consistent with bursitis. There is no erythema. N o tenderness. It is fluctuant. He has active full range of motion with flexion, extension, supinat ion, pronation of the left elbow and he is neurovascularly intact in the involved extremities. It i s nonpainful to range the elbow and is nodules, nontender. IMAGING STUDIES: Two views left elbow demonstrate hiys-ei-tnxvyran osteoarthritis, no lytic or mell tic changes otherwise. Normal cortices were observed. IMPRESSION: Aseptic left elbow olecranon bursitis. PLAN: Continue current management. No orthopedic intervention is warranted at this point, clinical ly appears stable and subacute. I do not recommend aspiration and did not recommend surgical interv ention. Continue to follow clinically.
[2017-01-14] MEDS ORDERED: cefTRIAXone\\ROCEPHIN 1 GM VIAL ONE (11:11)
[2017-01-14] MEDS ORDERED: Sodium Chloride 0.9% 100 ML ONE (11:11)
[2017-01-14] MEDS ORDERED: Lidocaine 1% PF 5 ML VIAL ONE (11:30)
[2017-01-14] MEDS ORDERED: PHENYLEPHRINE-NS 100 MCG/ML 10 ML SYRINGE ONE (11:30)
[2017-01-14] MEDS ORDERED: Propofol 200 MG/20 ML VIAL ONE (11:30)
[2017-01-14] MEDS: cefTRIAXone\\ROCEPHIN 1 GM in Sodium Chloride 0.9% 100 ML IVPB SCH (11:33)
--- NOTE | 2017-01-14 12:17 | OP ---
DATE OF PROCEDURE: 01/14/2017 PROCEDURE: Esophagogastroduodenoscopy with biopsy. PREOPERATIVE DIAGNOSIS: Gastrointestinal bleed. OPERATIVE NOTE: Informed consent was obtained. The patient was sedated with total intravenous anes thesia. The bite block was placed and the endoscope was advanced easily to the second portion of th e duodenum and retroflexion was performed in the stomach. The esophagus had severe grade D erosive esophagitis throughout the distal esophagus. This was mostly ulcer throughout. Difficult to tell i f there is a component of Hdz's where the Z-line would be. There was a small 2 cm hiatal hernia . The stomach had some mild erosive gastritis in the antrum. Biopsies were obtained to rule out H. pylori. Retroflexed views in the stomach were normal. The first portion of the duodenum had a dilia row 1 cm ulcer just before the turn. There was some inflamed mucosa around that, which was biopsied . There was a large flat moderately spreading polyp in the second portion of the duodenum measuring around 2.5 cm. Multiple biopsies were obtained. The remainder of the duodenal mucosa was normal. There was no active bleeding during the procedure. IMPRESSION: 1. Severe grade D erosive esophagitis throughout the distal esophagus, biopsied. 2. Small 2 cm hiatal hernia. 3. Erosive gastritis, biopsied to rule out Helicobacter pylori. 4. Shallow 1 cm narrow ulcer in the first portion of the duodenum with surrounding inflamed mucosa, biopsied. 5. A 2.5 cm flat polyp in the second portion of the duodenum, biopsied. RECOMMENDATIONS: 1. Proton pump inhibitor twice daily. 2. Await histopathology. 3. We will try to advance a mechanical soft diet. He will need to remain on a very soft diet.
[2017-01-14] MEDS ORDERED: Haloperidol Lactate 5 MG/ML VIAL IM PRN ×2 (16:55→20:02)
[2017-01-14] MEDS: Donepezil HCl 10 MG TAB PO SCH (21:15)
[2017-01-14] MEDS: Pantoprazole 40 MG VIAL IVP SCH (21:15)
[2017-01-15] MEDS: Levothyroxine Sodium 112 MCG TAB PO SCH (05:39)
[2017-01-15 06:54] LABS: Hematocrit 17.3 % (42.0-52.0); Mean Platelet Volume 7.3 fL (7.4-10.4); Red Blood Cell (RBC) Count 1.87 mill/uL (4.70-6.10); White Blood Cell (WBC) Count 5.8 thou/uL (4.8-10.8)
[2017-01-15 06:57] LABS: #Eosinphils 0.2 thou/uL (0.0-0.7); #Lymphocytes 1.4 thou/uL (1.20-3.40); #Monocytes 0.6 thou/uL (0.11-0.59); #Neutrophils 3.7 thou/uL (1.40-6.50); %Basophils 0.1 % (0.0-1.0); %Eosinophils 3.8 % (0.0-10.0); %Lymphocytes 23.2 % (21.0-51.0); %Monocytes 10.1 % (0.0-10.0)
[2017-01-15 07:06] LABS: Anion Gap 7 mmol/L (10-20); BUN (Urea Nitrogen) 27 mg/dL (8.4-25.7); Calc. Creatinine Clearance 101 mL/min (70-130); Calcium 7.6 mg/dL (7.8-10.44); Carbon Dioxide 24 mmol/L (23-31); Chloride 110 mmol/L (98-107); Estimated GFR-MDRD Greater than 90; Magnesium 1.8 mg/dL (1.6-2.6)
--- NOTE | 2017-01-15 08:10 | PDOC.PN ---
- Subjective Encounter Start Date: 01/15/17 Encounter Start Time: 08:08 Subjective: Awake/alert -: No agitation this AM -: No f/c - Objective Resuscitation Status: Resuscitation Status DNR:Do Not Resuscitate MAR Reviewed: Yes Vital Signs & Weight: Vital Signs (12 hours) Temp Pulse Resp BP Pulse Ox 01/15/17 04:00 97.6 F 109 H 20 117/60 01/15/17 00:00 98.6 F 105 H 20 125/60 94 L Weight Admit Weight 177 lb 9.6 oz Weight 187 lb 11.2 oz I&O: 01/14/17 01/15/17 01/16/17 06:59 06:59 06:59 Intake Total 1880 1750 Output Total 1375 Balance 1880 375 Result Diagrams: 01/15/17 06:25 01/15/17 06:25 Additional Labs: Accuchecks 01/15/17 01/14/17 01/14/17 05:55 20:34 16:07 POC Glucose 136 H 127 H 138 H 01/14/17 12:33 POC Glucose 121 H Phys Exam - Physical Examination Constitutional: NAD HEENT: PERRLA, moist MMs, sclera anicteric Neck: no nodes, no JVD Respiratory: no wheezing, no rales, clear to auscultation bilateral Cardiovascular: RRR, no significant murmur Gastrointestinal: soft, non-tender, positive bowel sounds Neurological: moves all 4 limbs Skin: no rash, normal turgor Dx/Plan (1) Chest pain Code(s): R07.9 - CHEST PAIN, UNSPECIFIED Status: Acute (2) Anemia Code(s): D64.9 - ANEMIA, UNSPECIFIED Status: Acute (3) Dementia Code(s): F03.90 - UNSPECIFIED DEMENTIA WITHOUT BEHAVIORAL DISTURBANCE Status: Chronic - Plan Atypical Chest pain * serial cardiac enzymes x3: negative for ACS * Elevated D dimer - DVT/PE unlikely given VQ and Venogram results * CXR: no infiltrates * CT a/p: no acute issues * urine cx: 10-25k growth of mixed skin keshia * blood cxs: NGTD * check labs in AM Acute Anemia * type and screen * transfused 3 units PRBCs on 01-12-17; will transfuse another 3 units PRBCs today - GI notified * FOB: Positive * consulted GI - s/p EGD * PPI * CT a/p: no intra-abdominal hemorrhage * monitor serial H/H Aseptic Left Elbow Olecronon Bursitis * XR: moderate OA with possible Olecranon Bursitis * prn analgesics * appreciate ortho recs - conservative management only Dispo: continue inpt.
[2017-01-15] MEDS: Sodium Chloride 0.9% 1,000 ML IV SCH ×3 (09:28→20:54)
[2017-01-15] MEDS: busPIRone HCl 10 MG TAB PO SCH (09:29)
[2017-01-15] MEDS: Saccharomyces boulardii 250 MG CAP PO SCH (09:29)
[2017-01-15] MEDS: Multivitamin W/ Minerals 1 TAB PO SCH (09:29)
[2017-01-15] MEDS: Pantoprazole 40 MG VIAL IVP SCH ×2 (09:29→20:53)
--- NOTE | 2017-01-15 10:11 | PQF ---
CLINICAL DOCUMENTATION IMPROVEMENT CLARIFICATION FORM: ICD-10 Updated PLEASE DO AN ADDENDUM TO THE PROGRESS NOTE WITH ANY DOCUMENTATION UPDATES OR ADDITIONS AND CARRY THROUGH TO DC SUMMARY. THANK YOU. DATE: 01/15 & 01/16 ATTN: DR. RUKHSANA ERWIN/ DR. LADY JEFF Please exercise your independent, professional judgment in responding to the clarification form. Clinical indicators are provided on the bottom of this form for your review Please check appropriate box(s): [ ] Anemia due to (please choose): [ ] Severe Grade D erosive esophagitis [ ] w/bleeding [ ] w/bleeding resolved [ ] w/o bleeding [ ] Erosive Gastritis [ ] w/bleeding [ ] w/bleeding resolved [ ] w/o bleeding Other diagnosis [ ] Unable to determine For continuity of documentation, please document condition throughout progress notes and discharge summary. Thank You. CLINICAL INDICATORS - SIGNS / SYMPTOMS / LABS H/H: 8.3/25.4 (01/11); 5.6/16.9 (01/12); 8.2/24.3 (01/13); 7.3/ 21.8 (01/14); 5.9/17.3 (01/15) TACHYCARDIA: 104-120 ATTENDING PHYSICIAN PN DATED 01/12 - 01/15: ACUTE ANEMIA GI CONSULT DOCUMENTATION 01/14: ACUTE BLOOD LOSS ANEMIA RISK FACTORS: MELENA ACUTE BLOOD LOSS ANEMIA SEVERE GRADE D EROSIVE ESOPHAGITIS (EGD OP REPORT 01/14) EROSIVE GASTRITIS (EGD OP REPORT 01/14) TREATMENTS: TRANSFUSION 3U PRBC'S (01/12) & ADDITIONAL 3U PRBC'S TO BE GIVEN ON 01/15 GI CONSULT EGD W/BIOPSIES (01/14) THANK YOU! Radha (This form is maintained as a part of the permanent medical record) 2014 [employer]. All Rights Reserved Radha Martino RN, BSN [email or web address] Office: [phone] ADDRESSED IN PROGRESS NOTE DATED 01/16/2017 MTDMian
[2017-01-15] MEDS: Azithromycin 500 MG in Sodium Chloride 0.9% 250 ML 250 ML IVPB SCH (12:06)
[2017-01-15] MEDS: cefTRIAXone\\ROCEPHIN 1 GM in Sodium Chloride 0.9% 100 ML IVPB SCH (13:15)
--- NOTE | 2017-01-15 15:05 | PRG ---
DATE OF SERVICE: 01/15/2017 SUBJECTIVE: Mr. Muse still has pain in his lower chest and epigastric region. He is toleratin g oral diet. OBJECTIVE: VITAL SIGNS: Temperature 97.6, pulse 104, blood pressure 119/59. GENERAL: He is in no acute distress. He is awake and alert. His iqtitnir-sk-utq and son are at th e bedside. LUNGS: Clear to auscultation bilaterally. HEART: Regular rate and rhythm. Tachycardic, S1 and S2. ABDOMEN: Soft, nontender, nondistended. Bowel sounds are present. EXTREMITIES: No lower extremity edema. IMPRESSION: 1. Anemia of acute blood loss. He is receiving 2 additional units transfusion today. 2. Gastrointestinal bleed. He passed black stool last night and again this morning. There was no active bleeding noted at the time of endoscopy. 3. Severe erosive esophagitis. The entire lower third of the esophagus had circumferential ulcerat ion. Biopsies were negative for Hdz's. 4. Small duodenal ulcer. Surrounding inflammatory changes around the duodenal ulcer were negative for neoplastic change. 5. Gastritis. Biopsies were negative for Helicobacter pylori. 6. 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 T his is not related to his current bleeding. Referral for endoscopic mucosal resection can be consid ered; however, this will need to be taken in context with his overall clinical status and certainly does not need to be addressed until after his acute bleeding and ulcerations are improved. RECOMMENDATIONS: 1. Continue pantoprazole IV. 2. Follow hemoglobin in response to transfusion.
[2017-01-15] MEDS: Donepezil HCl 10 MG TAB PO SCH (20:53)
[2017-01-16] MEDS: Levothyroxine Sodium 112 MCG TAB PO SCH (05:26)
[2017-01-16] MEDS: Sodium Chloride 0.9% 1,000 ML IV SCH ×2 (05:26→18:27)
[2017-01-16 05:30] LABS: #Eosinphils 0.2 thou/uL (0.0-0.7); #Lymphocytes 1.7 thou/uL (1.20-3.40); #Monocytes 0.7 thou/uL (0.11-0.59); #Neutrophils 4.2 thou/uL (1.40-6.50); %Eosinophils 3.6 % (0.0-10.0); %Lymphocytes 25.4 % (21.0-51.0); %Monocytes 9.5 % (0.0-10.0); Hematocrit 23.3 % (42.0-52.0); Mean Platelet Volume 6.1 fL (7.4-10.4); Red Blood Cell (RBC) Count 2.58 mill/uL (4.70-6.10); White Blood Cell (WBC) Count 6.8 thou/uL (4.8-10.8)
[2017-01-16 05:59] LABS: Anion Gap 5 mmol/L (10-20); BUN (Urea Nitrogen) 16 mg/dL (8.4-25.7); Calc. Creatinine Clearance 109 mL/min (70-130); Calcium 7.3 mg/dL (7.8-10.44); Carbon Dioxide 24 mmol/L (23-31); Chloride 111 mmol/L (98-107); Estimated GFR-MDRD Greater than 90; Magnesium 1.6 mg/dL (1.6-2.6)
[2017-01-16 06:09] VITALS: BMI 24.5
[2017-01-16] MEDS: Saccharomyces boulardii 250 MG CAP PO SCH (08:49)
[2017-01-16] MEDS: busPIRone HCl 10 MG TAB PO SCH (08:49)
[2017-01-16] MEDS: Multivitamin W/ Minerals 1 TAB PO SCH (08:49)
[2017-01-16] MEDS: Pantoprazole 40 MG VIAL IVP SCH ×2 (08:49→22:01)
[2017-01-16] MEDS: Azithromycin 500 MG in Sodium Chloride 0.9% 250 ML 250 ML IVPB SCH (10:06)
--- NOTE | 2017-01-16 10:48 | PDOC.PN ---
- Subjective Encounter Start Date: 01/16/17 Encounter Start Time: 09:10 -: old records requested/rev Pt seen and examined on rounds, chart reviewed in its entirety. Karen quinn my first visit with this patint. Pt admitted for UGIB, found to have severe erosive esophagitis and small duodenal ulcer, no acutve bleed. generally felt to be due to esophagitis. PPI continuing, path pending. Large polyp found and removed. no F/c, no N/V/d/C. No CP or sOB. no syncope or presyncope. received 3 units PRBCs on admit, three more yesterday. Hgb up to 7.8 and history of CAD. 10 point ROS performed and neg for all except as stated in the HPI - Objective Resuscitation Status: Resuscitation Status DNR:Do Not Resuscitate MAR Reviewed: Yes Vital Signs & Weight: Vital Signs (12 hours) Temp Pulse Pulse Resp BP BP Pulse Ox 01/16/17 08:00 98.1 F 95 18 128/59 L 96 01/16/17 04:00 99.0 F 86 18 102/52 L 93 L 01/15/17 22:50 98.7 F 91 20 129/70 96 Weight Admit Weight 177 lb 9.6 oz Weight 191 lb 8 oz I&O: 01/15/17 01/16/17 01/17/17 06:59 06:59 06:59 Intake Total 1750 3810 Output Total 1375 1850 Balance 375 1960 Result Diagrams: 01/16/17 04:47 01/16/17 04:47 Additional Labs: Accuchecks 01/16/17 01/15/17 01/15/17 06:04 20:26 15:27 POC Glucose 148 H 195 H 120 H 01/15/17 10:48 POC Glucose 205 H Radiology Reviewed by me: Yes EKG Reviewed by me: Yes Phys Exam - Physical Examination Constitutional: NAD HEENT: PERRLA, moist MMs, sclera anicteric, oral pharynx no lesions Neck: no nodes, no JVD, supple, full ROM Respiratory: no wheezing, no rales, no rhonchi, clear to auscultation bilateral Cardiovascular: RRR, no significant murmur, no rub Gastrointestinal: soft, non-tender, no distention, positive bowel sounds Musculoskeletal: no edema, pulses present Neurological: non-focal, normal sensation, moves all 4 limbs Lymphatic: no nodes Psychiatric: normal affect, A&O x 3 Skin: no rash, normal turgor, cap refill <2 seconds Dx/Plan (1) Acute blood loss anemia Code(s): D62 - ACUTE POSTHEMORRHAGIC ANEMIA Status: Acute Comment: secondary to erosive esophagitis. No current active bleed. PPI. Appreciate GI input. PAth pending (2) Erosive esophagitis Code(s): K22.10 - ULCER OF ESOPHAGUS WITHOUT BLEEDING Status: Acute Comment : no active bleed. see above (3) Duodenal ulcer Status: Acute Comment: small, no acutve bleed. PPI. (4) Colon polyp Code(s): K63.5 - POLYP OF COLON Status: Acute Qualifiers: Colon polyp type: unspecified Colon location: unspecified part of colon Qualified Code(s): K63.5 - Polyp of colon Comment: awaiting path (5) UGIB (upper gastrointestinal bleed) Code(s): K92.2 - GASTROINTESTINAL HEMORRHAGE, UNSPECIFIED Status: Acute Comment: upper gI bleed. resolved. (6) Dementia Code(s): F03.90 - UNSPECIFIED DEMENTIA WITHOUT BEHAVIORAL DISTURBANCE Status: Chronic Qualifiers: Dementia type: unspecified type Dementia behavioral disturbance: without behavioral disturbance Qualified Code(s): F03.90 - Unspecified dementia without behavioral disturbance (7) Toxic metabolic encephalopathy Code(s): G92 - TOXIC ENCEPHALOPATHY Status: Resolved - Plan cont current plan of care, PT/OT * .
[2017-01-16] MEDS: cefTRIAXone\\ROCEPHIN 1 GM in Sodium Chloride 0.9% 100 ML IVPB SCH (11:14)
[2017-01-16 11:55] LABS: #Eosinphils 0.2 thou/uL (0.0-0.7); #Lymphocytes 1.6 thou/uL (1.20-3.40); #Monocytes 0.7 thou/uL (0.11-0.59); #Neutrophils 4.3 thou/uL (1.40-6.50); %Basophils 0.3 % (0.0-1.0); %Eosinophils 2.8 % (0.0-10.0); %Lymphocytes 23.3 % (21.0-51.0); %Monocytes 9.7 % (0.0-10.0); Hematocrit 22.1 % (42.0-52.0); Red Blood Cell (RBC) Count 2.45 mill/uL (4.70-6.10); White Blood Cell (WBC) Count 6.8 thou/uL (4.8-10.8)
[2017-01-16 12:15] LABS: Anion Gap 7 mmol/L (10-20); BUN (Urea Nitrogen) 22 mg/dL (8.4-25.7); Calc. Creatinine Clearance 98 mL/min (70-130); Calcium 7.7 mg/dL (7.8-10.44); Carbon Dioxide 24 mmol/L (23-31); Chloride 110 mmol/L (98-107); Estimated GFR-MDRD Greater than 90
[2017-01-16] MEDS ORDERED: Azithromycin 500 MG, Admixture Fee 1 EACH in Sodium Chloride 0.9% 250 ML 250 ML IVPB SCH (14:30)
[2017-01-16] MEDS ORDERED: cefTRIAXone\\ROCEPHIN 1 GM, Admixture Fee 1 EACH in Sodium Chloride 0.9% 100 ML IVPB SCH (14:30)
--- NOTE | 2017-01-16 19:56 | PRG ---
DATE OF SERVICE: 01/16/2017 SUBJECTIVE: Mr. Muse has passed couple more black liquidy stools today. He has had no abdomin al pain or nausea or vomiting. He is tolerating a solid diet. OBJECTIVE: VITAL SIGNS: Temperature 98.2, pulse is 92, and blood pressure 140/65. GENERAL: He is in no acute distress. He is awake and alert. LUNGS: Clear to auscultation bilaterally. HEART: Regular rate and rhythm. ABDOMEN: Soft, nontender, and nondistended. Bowel sounds are present. EXTREMITIES: No lower extremity edema. LABORATORY DATA: White blood cell count 6.8, hemoglobin is 7.5, this is after 3 units transfusion y esterday up from 5.9. He did receive 3 units on 01/12/2017 as well. He has received a total of 6 s o far. IMPRESSION: 1. Anemia of acute blood loss. He received 3 units of transfusion yesterday and 3 units of transfu [place] on 01/12/2017. 2. Acute gastrointestinal bleed secondary to severe erosive esophagitis and duodenal ulcer. He has continued to pass black stools and his hemoglobin is not responded completely to transfusion. We w ill continue to follow the trend of the hemoglobin at this point. 3. Severe erosive esophagitis. 4. Small duodenal ulcer. 5. Large 2.5 cm flat polyp in the second portion of the duodenum which was biopsied. The biopsy sh owed this to be an adenoma. It was not removed; however, this is not believed to be related to his bleeding. Depending on his clinical status future referral for endoscopic mucosal resection could b e considered; however, this is low priority relating to the current bleed. RECOMMENDATIONS: 1. Continue pantoprazole IV. 2. Continue to follow the hemoglobin. If he continues to pass black stools, his blood count drops further, then we may have to repeat EGD to reevaluate bleeding source.
[2017-01-16] MEDS: Donepezil HCl 10 MG TAB PO SCH (22:01)
[2017-01-17 06:10] LABS: #Eosinphils 0.1 thou/uL (0.0-0.7); #Lymphocytes 1.2 thou/uL (1.20-3.40); #Monocytes 0.5 thou/uL (0.11-0.59); #Neutrophils 3.7 thou/uL (1.40-6.50); %Basophils 0.4 % (0.0-1.0); %Eosinophils 2.7 % (0.0-10.0); %Lymphocytes 21.1 % (21.0-51.0); %Monocytes 9.2 % (0.0-10.0); Hematocrit 21.9 % (42.0-52.0); Mean Platelet Volume 5.9 fL (7.4-10.4); Red Blood Cell (RBC) Count 2.42 mill/uL (4.70-6.10); White Blood Cell (WBC) Count 5.5 thou/uL (4.8-10.8)
[2017-01-17 06:23] LABS: Anion Gap 9 mmol/L (10-20); BUN (Urea Nitrogen) 12 mg/dL (8.4-25.7); Calc. Creatinine Clearance 103 mL/min (70-130); Calcium 7.8 mg/dL (7.8-10.44); Carbon Dioxide 24 mmol/L (23-31); Chloride 107 mmol/L (98-107); Estimated GFR-MDRD Greater than 90; Magnesium 1.7 mg/dL (1.6-2.6)
[2017-01-17] MEDS: Levothyroxine Sodium 112 MCG TAB PO SCH (06:31)
[2017-01-17] MEDS: Sodium Chloride 0.9% 1,000 ML IV SCH (06:40)
[2017-01-17] MEDS: busPIRone HCl 10 MG TAB PO SCH (08:27)
[2017-01-17] MEDS: Multivitamin W/ Minerals 1 TAB PO SCH (08:28)
[2017-01-17] MEDS: Pantoprazole 40 MG VIAL IVP SCH ×2 (08:29→21:14)
[2017-01-17] MEDS: Saccharomyces boulardii 250 MG CAP PO SCH (08:30)
[2017-01-17] MEDS ORDERED: Azithromycin 500 MG, Admixture Fee 1 EACH in Sodium Chloride 0.9% 250 ML 250 ML IVPB SCH (10:00)
--- NOTE | 2017-01-17 10:22 | PDOC.PN ---
- Subjective Encounter Start Date: 01/17/17 Encounter Start Time: 08:00 Subjective: says no black stools, no nausea -: feels better but weak - Objective Resuscitation Status: Resuscitation Status DNR:Do Not Resuscitate MAR Reviewed: Yes Vital Signs & Weight: Vital Signs (12 hours) Temp Pulse Resp BP Pulse Ox 01/17/17 08:15 99.1 F 102 H 26 H 151/70 H 96 01/17/17 05:25 97 01/17/17 04:00 98.9 F 110 H 18 143/65 H 94 L 01/17/17 00:13 110 H 20 146/100 H 97 Weight Admit Weight 177 lb 9.6 oz Weight 186 lb 11.2 oz I&O: 01/16/17 01/17/17 01/18/17 06:59 06:59 06:59 Intake Total 3810 2690 Output Total 1850 502 Balance 1960 2188 Result Diagrams: 01/17/17 05:41 01/17/17 05:41 Additional Labs: Accuchecks 01/17/17 01/16/17 01/16/17 06:00 20:11 10:55 POC Glucose 142 H 162 H 231 H Phys Exam - Physical Examination HEENT: PERRLA, moist MMs Neck: no JVD, supple Respiratory: no wheezing, no rales Cardiovascular: RRR, no significant murmur Gastrointestinal: soft, non-tender, positive bowel sounds Musculoskeletal: no edema, pulses present Neurological: non-focal, moves all 4 limbs Psychiatric: A&O x 3 Dx/Plan (1) Acute blood loss anemia Code(s): D62 - ACUTE POSTHEMORRHAGIC ANEMIA Status: Acute (2) Duodenal ulcer Status: Acute Comment: small, no active bleed. PPI. (3) Erosive esophagitis Code(s): K22.10 - ULCER OF ESOPHAGUS WITHOUT BLEEDING Status: Acute Comment : no active bleed. (4) GI bleed Code(s): K92.2 - GASTROINTESTINAL HEMORRHAGE, UNSPECIFIED Status: Acute Qualifiers: GI bleed type/associated pathology: anorectal hemorrhage Qualified Code(s) : K62.5 - Hemorrhage of anus and rectum Comment: H/H stable. (5) Dementia Code(s): F03.90 - UNSPECIFIED DEMENTIA WITHOUT BEHAVIORAL DISTURBANCE Status: Chronic Qualifiers: Dementia type: unspecified type Dementia behavioral disturbance: without behavioral disturbance Qualified Code(s): F03.90 - Unspecified dementia without behavioral disturbance - Plan h/h around 10/18, its slowly trending down from yesterday -: given his age of 81, will monitor for another 24hrs before dc -: to mobilize as tolerated, oob to chair/amb -: has recieved a total of 6 units prbc's, watch for overload -: on protonix * . Review of Systems - Medications/Allergies Allergies/Adverse Reactions: Allergies Allergy/AdvReac Type Severity Reaction Status Date / Time Iodinated Contrast- Oral and Allergy Verified 06/12/16 22:55 IV Dye [Iodinated Contrast Media - Oral and] shellfish derived Allergy Verified 06/12/16 22:55 Medications: Current Medications Acetaminophen (Tylenol) 650 mg PO Q4H PRN PRN Reason: Headache/Fever or Pain Last Admin: 01/13/17 09:29 Dose: 650 mg Hydrocodone Bitart/Acetaminophen ([place] 5/325) 1 tab PO Q4H PRN PRN Reason: Moderate Pain (4-6) Last Admin: 01/14/17 09:28 Dose: 1 tab Al Hydroxide/Mg Hydroxide (Maalox) 30 ml PO Q6H PRN PRN Reason: Heartburn or Indigestion Last Admin: 01/12/17 11:51 Dose: 30 ml Alprazolam (Xanax) 0.25 mg PO HSPRN PRN PRN Reason: Anxiety/Insomnia Last Admin: 01/13/17 09:30 Dose: 0.25 mg Artificial Tears (Tears Naturale) 0 drop EA EYE PRN PRN PRN Reason: Dry Eyes Aspirin (Aspirin Chewable) 81 mg PO DAILY [facility] Last Admin: 01/17/17 08:27 Dose: 81 mg Benzonatate (Tessalon) 100 mg PO Q4H PRN PRN Reason: Cough Buspirone HCl (Buspar) 10 mg PO DAILY [facility] Last Admin: 01/17/17 08:27 Dose: 10 mg Dextrose/Water (Dextrose 50%) 25 gm SLOW IVP PRN PRN PRN Reason: Hypoglycemia Donepezil HCl (Aricept) 10 mg PO HS [facility] Last Admin: 01/16/17 22:01 Dose: 10 mg Glucagon (Glucagon) 1 mg IM PRN PRN PRN Reason: Hypoglycemia Guaifenesin (Robitussin Sf) 200 mg PO Q4H PRN PRN Reason: Cough Haloperidol Lactate (Haldol) 2 mg IM Q4H PRN PRN Reason: .AGITATION Last Admin: 01/16/17 20:39 Dose: 2 mg Hydralazine HCl (Apresoline) 10 mg SLOW IVP Q4H PRN PRN Reason: Systolic BP > 180 Dextrose/Water (D5w) 1,000 mls @ 0 mls/hr IV .Q0M PRN; As Directed PRN Reason: Hypoglycemia Sodium Chloride (Normal Saline 0.9%) 1,000 mls @ 100 mls/hr IV .Q10H [facility] Last Admin: 01/17/17 06:40 Dose: 1,000 mls Insulin Human Lispro (Humalog) 0 units SC .MODERATE SLIDING SC PRN PRN Reason: Moderate Correctional Scale Last Admin: 01/16/17 12:09 Dose: 4 unit Insulin Human Lispro (Humalog) 0 units SC .BEDTIME SLIDING SC PRN PRN Reason: Bedtime Correctional Scale Iron/Minerals/Multivitamins (Theragran M) 1 tab PO DAILY [facility] Last Admin: 01/17/17 08:28 Dose: 1 tab Levothyroxine Sodium (Synthroid) 112 mcg PO 0600 [facility] Last Admin: 01/17/17 06:31 Dose: 112 mcg Loperamide HCl (Imodium) 2 mg PO PRN PRN PRN Reason: Diarrhea/Loose Stools Loratadine (Claritin) 10 mg PO DAILYPRN PRN PRN Reason: Sinus Symptoms Magnesium Hydroxide (Milk Of Magnesium) 30 ml PO DAILYPRN PRN PRN Reason: Constipation Memantine (Namenda) 5 mg PO BID [facility] Last Admin: 01/17/17 08:28 Dose: 5 mg Mineral Oil/White Petrolatum (Eucerin Cream) 0 gm TOP BIDPRN PRN PRN Reason: Dry Skin Ondansetron HCl (Zofran Odt) 4 mg PO Q6H PRN PRN Reason: Nausea/Vomiting Ondansetron HCl (Zofran) 4 mg IVP Q6H PRN PRN Reason: Nausea/Vomiting Pantoprazole Sodium (Protonix) 40 mg IVP Q12HR [facility] Last Admin: 01/17/17 08:29 Dose: 40 mg Saccharomyces Boulardii (Florastor) 250 mg PO DAILY [facility] Last Admin: 01/17/17 08:30 Dose: 250 mg Senna (Senokot) 2 tab PO HSPRN PRN PRN Reason: Constipation Sertraline HCl (Zoloft) 100 mg PO DAILY [facility] Last Admin: 01/17/17 08:30 Dose: 100 mg Sodium Chloride (Jay Nasal [place] 0.65%) 0 ml EA NARE QIDPRN PRN PRN Reason: Nasal Congestion Sodium Chloride (Flush - Normal Saline) 10 ml IVF Q12HR [facility] Last Admin: 01/17/17 08:31 Dose: Not Given Sodium Chloride (Flush - Normal Saline) 10 ml IVF PRN PRN PRN Reason: Saline Flush Last Admin: 01/17/17 08:29 Dose: 10 ml Zolpidem Tartrate (Ambien) 5 mg PO HSPRN PRN PRN Reason: Insomnia
[2017-01-17] MEDS ORDERED: cefTRIAXone\\ROCEPHIN 1 GM, Admixture Fee 1 EACH in Sodium Chloride 0.9% 100 ML IVPB SCH (11:00)
--- NOTE | 2017-01-17 16:25 | PRG ---
DATE OF SERVICE: 01/17/2017 SUBJECTIVE: Mr. Muse has had no bowel movements today. No abdominal pain. He is tolerating o ral diet well. OBJECTIVE: VITAL SIGNS: Temperature 97.8, pulse 91, blood pressure 127/72. GENERAL: He is in no acute distress, awake and alert. LUNGS: Clear to auscultation bilaterally. HEART: Regular rate and rhythm. ABDOMEN: Soft, nontender, nondistended. Bowel sounds are present. EXTREMITIES: Trace lower extremity edema. LABORATORY DATA: Hemoglobin is 7.3 today, down from 7.5 yesterday. IMPRESSION: 1. Acute upper gastrointestinal bleed secondary to severe erosive esophagitis and duodenal ulcerati ons. He is no longer passing overt bloody stools and his hemoglobin has stabilized. 2. Anemia of acute blood loss. His hemoglobin is stable today. 3. Large 2.5 cm flat polyp in the second portion of the duodenum. Biopsies showed this to be an ad enoma. Consideration for future endoscopic mucosal resection can be considered based on clinical st atus. RECOMMENDATIONS: 1. Change pantoprazole to 40 mg p.o. twice daily. 2. Continue oral diet. 3. If his hemoglobin remains stable tomorrow and he has no further overt bleeding, he could potenti ally discharge home tomorrow. 4. Dr. Hernandez will be covering for the weekend.
[2017-01-17] MEDS ORDERED: risperiDONE 1 MG TAB PO SCH (21:00)
[2017-01-17] MEDS: Donepezil HCl 10 MG TAB PO SCH (21:13)
[2017-01-18 05:06] LABS: #Basophils 0.1 thou/uL (0.0-0.2); #Eosinphils 0.1 thou/uL (0.0-0.7); #Lymphocytes 0.9 thou/uL (1.20-3.40); #Monocytes 0.5 thou/uL (0.11-0.59); #Neutrophils 2.4 thou/uL (1.40-6.50); %Basophils 1.7 % (0.0-1.0); %Eosinophils 2.1 % (0.0-10.0); %Lymphocytes 23.5 % (21.0-51.0); %Monocytes 11.8 % (0.0-10.0); Hematocrit 21.5 % (42.0-52.0); Red Blood Cell (RBC) Count 2.35 mill/uL (4.70-6.10)
[2017-01-18 05:24] LABS: Anion Gap 8 mmol/L (10-20); BUN (Urea Nitrogen) 8 mg/dL (8.4-25.7); Calc. Creatinine Clearance 98 mL/min (70-130); Calcium 7.9 mg/dL (7.8-10.44); Carbon Dioxide 24 mmol/L (23-31); Chloride 106 mmol/L (98-107); Estimated GFR-MDRD Greater than 90
[2017-01-18] MEDS: Levothyroxine Sodium 112 MCG TAB PO SCH (06:18)
[2017-01-18] MEDS: busPIRone HCl 10 MG TAB PO SCH (08:27)
[2017-01-18] MEDS: Multivitamin W/ Minerals 1 TAB PO SCH (08:27)
[2017-01-18] MEDS: Saccharomyces boulardii 250 MG CAP PO SCH (08:29)
[2017-01-18] MEDS: Pantoprazole 40 MG VIAL IVP SCH (08:29)
--- NOTE | 2017-01-18 11:22 | PDOC.PN ---
- Subjective Encounter Start Date: 01/18/17 Encounter Start Time: 09:00 Subjective: is amb in hallway -: not fully oriented -: not in distress - Objective Resuscitation Status: Resuscitation Status DNR:Do Not Resuscitate MAR Reviewed: Yes Vital Signs & Weight: Vital Signs (12 hours) Temp Pulse Resp BP Pulse Ox 01/18/17 08:00 98.0 F 91 20 01/18/17 07:28 98.0 F 91 20 134/83 99 01/18/17 04:00 98.0 F 99 18 120/69 95 01/18/17 00:00 97.3 F L 101 H 16 138/65 97 Weight Admit Weight 177 lb 9.6 oz Weight 186 lb 11.2 oz I&O: 01/17/17 01/18/17 01/19/17 06:59 06:59 06:59 Intake Total 2690 1440 480 Output Total 502 375 Balance 2188 1065 480 Result Diagrams: 01/18/17 04:51 01/18/17 04:51 Additional Labs: Accuchecks 01/18/17 01/17/17 01/17/17 05:38 20:01 16:31 POC Glucose 145 H 141 H 114 H 01/17/17 11:28 POC Glucose 156 H Phys Exam - Physical Examination HEENT: PERRLA, moist MMs Neck: no JVD, supple Respiratory: no wheezing, no rales Cardiovascular: RRR, no significant murmur Gastrointestinal: soft, non-tender, positive bowel sounds Musculoskeletal: no edema, pulses present Neurological: non-focal, moves all 4 limbs Dx/Plan (1) Acute blood loss anemia Code(s): D62 - ACUTE POSTHEMORRHAGIC ANEMIA Status: Acute (2) Duodenal ulcer Status: Acute Comment: small, no active bleed. PPI. (3) Erosive esophagitis Code(s): K22.10 - ULCER OF ESOPHAGUS WITHOUT BLEEDING Status: Acute Comment : no active bleed. (4) GI bleed Code(s): K92.2 - GASTROINTESTINAL HEMORRHAGE, UNSPECIFIED Status: Acute Qualifiers: GI bleed type/associated pathology: anorectal hemorrhage Qualified Code(s) : K62.5 - Hemorrhage of anus and rectum Comment: H/H stable. (5) Dementia Code(s): F03.90 - UNSPECIFIED DEMENTIA WITHOUT BEHAVIORAL DISTURBANCE Status: Chronic Qualifiers: Dementia type: unspecified type Dementia behavioral disturbance: without behavioral disturbance Qualified Code(s): F03.90 - Unspecified dementia without behavioral disturbance - Plan hemostable -: to check cbc on friday, d/w daughter in law over phone -: she prefers him to come home today and not have transfusion today -: hb around 7g -: to f/u with as adv * .
[2017-01-18 11:49] VITALS: BP 113/57; TEMP 98.1
--- NOTE | 2017-01-18 16:31 | PRG ---
DATE OF SERVICE: 01/18/2017 SUBJECTIVE: Mr. Jomar Muse is an 81-year-old male hospitalized with melena and anem ia. The patient underwent EGD by Dr. Zoltan Antonio and was found to have erosive esophagitis and al so a duodenal ulcer. He has no more active bleeding. Blood count is stable around 7.2. He has no abdominal pain, no nausea or vomiting. Over the last 72 hours, his blood count is staying around 7. 5 to 7.2. PHYSICAL EXAMINATION: GENERAL: He appears comfortable. VITAL SIGNS: He is afebrile. Pulse is 91, blood pressure is 113/57. CARDIAC: First and second heart sounds within normal limits. ABDOMEN: Soft to palpate. Abdomen is nontender. RECOMMENDATIONS: The patient can be discharged home on iron supplement and Protonix. He will follow up with Dr. Zoltan Antonio in the near future.
--- NOTE | 2017-01-18 20:06 | DIS ---
DATE OF ADMISSION: 01/11/2017 DATE OF DISCHARGE: 01/18/2017 DISCHARGE DISPOSITION: To home. PRIMARY DISCHARGE DIAGNOSES: 1. Acute blood loss anemia due to gastrointestinal bleed and peptic ulcer. 2. Duodenal ulcer with erosive esophagitis. 3. Dementia. 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 Upper endoscopy done by Dr. Zoltan Antonio on 01/14/2017 showe d severe grade D erosive esophagitis throughout the distal esophagus, which were biopsied. There is a small 2 cm hiatal hernia and he also had erosive gastritis, which was biopsied. There was shallo w 1 cm narrow ulcer in the first portion of the duodenum with surrounding inflamed mucosa, which was biopsied. The patient has had nearly 6 units of packed cells transfused for acute blood loss anemi a during his stay here. Discharge H\T\H is 7.2 and 21, platelet count is 218, had a hemoglobin of 5.9 on the and 5.6 on the . Cardiac enzymes x3 are negative. Initial BUN and creatinine w ere 93 and 1.3. Discharge BUN and creatinine is 8 and 0.7. Blood cultures x2 no growth. DISCHARGE MEDICATIONS: Patient to continue ferrous sulfate 325 mg p.o. daily, lisinopril 10 mg p.o. daily, Synthroid 112 mcg p.o. daily, donepezil 10 mg p.o. at bedtime, alprazolam 0.25 mg p.o. at be dtime, Namenda 10 mg p.o. daily, lisinopril 10 mg daily, Protonix 40 mg p.o. twice daily, sertraline 100 mg p.o. daily, Buspirone 10 mg p.o. daily, metformin 1000 mg p.o. twice daily. ALLERGIES: To SHELLFISH and IODINE. INPATIENT CONSULTS: Dr. Zoltan Antonio for Gastroenterology. BRIEF COURSE DURING HOSPITALIZATION: Patient initially got admitted on the with complaints of chest pain and an initial suspicion for UTI and sepsis. He had hemoglobin of 8 and a BUN of 93 with strong suspicion for upper GI bleed. He has had consultation with Dr. Zoltan Antonio. The patient' s hemoglobin dropped to 5 grams and was given a total of 6 units of packed cell transfusion. He has had severe erosive esophagitis with peptic ulcer in the duodenum and erosive gastritis as well, all of which contributed for his bleeding. He has had serial H\T\H done, which has remained stable. T he patient has underlying dementia and has sundowning. The family would like to take him home and w ill be shortly discharged. He has been cleared by Dr. Zoltan Antonio for discharge. Please see a fa ce-to-face documentation on [facility] for the day of discharge. He has been advised to continue ferr ous sulfate and Protonix as prescribed.
== END 2017-01-18 14:32 | disposition home or self-care (01) | DRG 380 ==
LOC: ERS 05:23 → 2NO 09:11 → T4-B 01-17 13:38
PROVIDERS: ADMIT Internal Medicine; ATTEND Internal Medicine
PROC: 30233N1 Transfusion of Nonautologous Red Blood Cells into Peripheral Vein, Percutaneous Approach (ICD-10-PCS; 2017-01-12)
PROC: 0DB98ZX Excision of Duodenum, Via Natural or Artificial Opening Endoscopic, Diagnostic (ICD-10-PCS; principal; 2017-01-14)
PROC: 0DB68ZX Excision of Stomach, Via Natural or Artificial Opening Endoscopic, Diagnostic (ICD-10-PCS; 2017-01-14)
PROC: 0DB58ZX Excision of Esophagus, Via Natural or Artificial Opening Endoscopic, Diagnostic (ICD-10-PCS; 2017-01-14)
DX: K22.11 Ulcer of esophagus with bleeding (principal); G92 Toxic encephalopathy; N17.9 Acute kidney failure, unspecified; K26.4 Chronic or unspecified duodenal ulcer with hemorrhage; K26.9 Duodenal ulcer, unspecified as acute or chronic, without hemorrhage or perforation; E87.2 Acidosis; D62 Acute posthemorrhagic anemia; G30.9 Alzheimer's disease, unspecified; F02.80 Dementia in other diseases classified elsewhere, unspecified severity, without behavioral disturbance, psychotic disturbance, mood disturbance, and anxiety; K29.01 Acute gastritis with bleeding; J40 Bronchitis, not specified as acute or chronic; E11.9 Type 2 diabetes mellitus without complications; F32.9 Major depressive disorder, single episode, unspecified; Z79.84 Long term (current) use of oral hypoglycemic drugs; F41.9 Anxiety disorder, unspecified; E03.9 Hypothyroidism, unspecified; Z66 Do not resuscitate; K44.9 Diaphragmatic hernia without obstruction or gangrene; K20.8 Other esophagitis; M70.22 Olecranon bursitis, left elbow; Z86.73 Personal history of transient ischemic attack (TIA), and cerebral infarction without residual deficits; D13.2 Benign neoplasm of duodenum
CPT/HCPCS: 36415; 36416; 36430; 71010; 74176; 78582; 80048; 80053; 81001; 82274; 82553; 83605; 83735; 83880; 84484; 85025; 85379; 86850; 86900; 86901; 87040; 87086; 88305; 88312; 88313; 93005; 93970; 94760; 96361; 96365; 96367; A4216; A9540; A9558; C9113; G8978-GP-CJ; G8979-GP-CI; J0456; J0696; J1630; J1644; J2001; J2704; J3486; J7050; P9016

== ENCOUNTER 2017-01-21 15:21 | Outpatient (CLI) | payer MEDICARE ==
--- NOTE | 2017-01-21 17:45 | RAD ---
ACUTE ABDOMINAL SERIES FRONTAL RADIOGRAPH CHEST AND TWO VIEWS OF ABDOMEN: 01/21/17 HISTORY: Pain, history of ulcer and bleeding. FINDINGS: Frontal radiograph chest demonstrates no pneumothorax, pleural fluid, focal consolidation or alveola r edema. There is mild increased linear density within the left costophrenic angle. There is atheros clerotic calcification in the aortic arch. There is a should arthroplasty on the right. Upright imaging demonstrates no evidence for free intraperitoneal air. 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 Bowel gas pattern appears nono bstructed. Significant stool overlies the colon in the region of the hepatic flexure and rectum. IMPRESSION: Incidental findings as detailed above. No radiographic evidence of acute cardiopulmonary disease, sm all bowel obstruction, or free intraperitoneal air. POS: CHAR
== END 2017-01-21 15:22 | disposition home or self-care (01) ==
LOC: RAD-FRANK 15:21
PROVIDERS: ATTEND Nurse Practitioner Family
DX: Z09 Encounter for follow-up examination after completed treatment for conditions other than malignant neoplasm (principal); K26.9 Duodenal ulcer, unspecified as acute or chronic, without hemorrhage or perforation; E11.649 Type 2 diabetes mellitus with hypoglycemia without coma; R53.1 Weakness; Z87.19 Personal history of other diseases of the digestive system; F41.1 Generalized anxiety disorder; E78.5 Hyperlipidemia, unspecified; M19.011 Primary osteoarthritis, right shoulder; E03.9 Hypothyroidism, unspecified; Z91.81 History of falling; H90.3 Sensorineural hearing loss, bilateral; F03.90 Unspecified dementia, unspecified severity, without behavioral disturbance, psychotic disturbance, mood disturbance, and anxiety
CPT/HCPCS: 36415; 74022; 80053; 81003; 82150; 82607; 82746; 83036; 83690; 84443; 85007; 85027; 87086